=== PATIENT | male | born 1985 | race African-American/Black ===

== ENCOUNTER 2024-10-01 17:54 | Emergency (ER) | payer OTHER ==
[~2024-10-01] VITALS: Ht 172.7 cm; Wt 125.0 kg
[2024-10-01 17:57] VITALS: O2SAT 98
[2024-10-01 18:39] LABS: BASOPHILS % 0.5 % (0.0-2.0); EOSINOPHILS % 0.7 % (0.0-5.0); HEMATOCRIT. 43.2 % (42.0-52.0); HEMOGLOBIN. 14.7 g/dL (14.0-18.0); MEAN CORPUSCULAR HEMOGLOBIN 28.8 pg (28.0-32.0); MEAN CORPUSCULAR VOLUME 84.8 fL (80.0-94.0); MEAN PLATELET VOLUME 7.6 fl (7.4-10.4); MONOCYTES % 11.7 % (2.0-8.0); NEUTROPHILS % 68.1 % (40.0-76.0); PLATELET 193 x1000/uL (130-400); RED CELL DISTRIBUTION WIDTH 14.4 % (11.6-14.6); WHITE BLOOD COUNT 11.1 x1000/uL (4.5-11.0)
[2024-10-01 18:41] LABS: CHLORIDE 103 mEq/L (98-107); POTASSIUM 3.5 mEq/L (3.5-5.1); SODIUM 138 mEq/L (136-145)
[2024-10-01 18:42] LABS: CALCIUM 9.5 mg/dL (8.7-10.4); CARBON DIOXIDE 29 mEq/L (21-32)
[2024-10-01 18:47] LABS: CREATININE 0.9 mg/dL (0.6-1.3); GLUCOSE 138 mg/dL (70-105); UREA NITROGEN BLOOD 16 mg/dL (9-23)
[2024-10-01 18:52] LABS: TROPONIN I HIGH SENSITIVITY 79 ng/L (3.0-53)
[2024-10-01] MEDS: LISINOPRIL 40MG TABLET PO NR (18:52)
[2024-10-01] MEDS: CLONIDINE 0.1MG TABLET PO NR (20:25)
[2024-10-01] MEDS: HYDRALAZINE 20MG/ML VIAL IV NR (20:27)
[2024-10-01] MEDS: ENOXAPARIN 150MG/ML SYR SUBCUT NR (20:29)
[2024-10-01] MEDS: HYDROCODONE/ACETAMINOPHEN 5/325MG TABLET PO PRN (23:52)
[2024-10-01] MEDS: HYDRALAZINE 20MG/ML VIAL IV PRN (23:52)
[2024-10-02] MEDS: NICARDIPINE 40 MG/200 ML PREMIX 200 ML IV PRN (02:53)
[2024-10-02] MEDS ORDERED: LABETALOL 5MG/ML 4ML INJ IV PRN (09:00)
[2024-10-02] MEDS: CARVEDILOL 12.5MG TABLET PO SCH (09:24)
[2024-10-02 09:32] VITALS: BP 169/88; PULSE 108; RESP 16; TEMP 36.66960; O2SAT 96
== END 2024-10-02 09:35 | disposition left against medical advice (07) ==
LOC: EDBD 17:54 → ER 17:54 → EDBEDREQ 22:01 → EDBEDREQTM 22:01 → EDBEDREQSVC 10-02 02:08 → EDBEDREQTM 10-02 02:08 → EDBEDREQDT 10-02 02:08 → ER 10-02 09:35
DX: R07.89 Other chest pain (principal); R06.02 Shortness of breath; J44.9 Chronic obstructive pulmonary disease, unspecified; I10 Essential (primary) hypertension; E78.5 Hyperlipidemia, unspecified
CPT/HCPCS: 80048; 83880 ×2; 85025; 84484; 36415 ×2; 71045; 93005; 96372; 96375; 96376; 99291; 96365; J1650; J0360; Z7610